=== PATIENT | male | born 1945 | race Caucasian/White ===

== ENCOUNTER 2017-08-06 09:00 | Inpatient (IN) | payer OTHER ==
[~2017-08-06] VITALS: Ht 165.1 cm; Wt 77.1 kg
[2017-08-06] MEDS ORDERED: COUMADIN5 MG PO (10:51)
[2017-08-06] MEDS ORDERED: CRESTOR20 MG PO (10:52)
[2017-08-06] MEDS ORDERED: OLMESARTAN PO (10:52)
== END 2017-08-14 16:20 | disposition home or self-care (01) | DRG 331 ==
LOC: SURG 08-11 05:40 → O/R 08-11 05:40 → SURH 08-11 09:00 → SURG 08-11 12:58 → SURH 08-11 20:15 → SURG 08-14 16:20
PROVIDERS: Colon & Rectal Surgery
PROC: 07TC4ZZ Resection of Pelvis Lymphatic, Percutaneous Endoscopic Approach (ICD-10-PCS; 2017-08-11)
PROC: 0DBU4ZZ Excision of Omentum, Percutaneous Endoscopic Approach (ICD-10-PCS; 2017-08-11)
PROC: 0WQF4ZZ Repair Abdominal Wall, Percutaneous Endoscopic Approach (ICD-10-PCS; 2017-08-11)
PROC: 0DTH4ZZ Resection of Cecum, Percutaneous Endoscopic Approach (ICD-10-PCS; principal; 2017-08-11 20:15)
DX: D12.0 Benign neoplasm of cecum (principal); K43.9 Ventral hernia without obstruction or gangrene; I11.9 Hypertensive heart disease without heart failure; E78.00 Pure hypercholesterolemia, unspecified; Z79.01 Long term (current) use of anticoagulants; Z95.2 Presence of prosthetic heart valve; D07.5 Carcinoma in situ of prostate

== ENCOUNTER 2017-08-21 12:27 | Inpatient (IN) | payer OTHER ==
[~2017-08-21] VITALS: Ht 167.6 cm; Wt 74.8 kg
[~2017-08-21 12:27] MED LIST: COUMADIN5 MG PO; CRESTOR20 MG PO; OLMESARTAN PO
[2017-08-24] MEDS ORDERED: OMEGA 3-6-9 CO400 MG PO (09:46)
[2017-08-24] MEDS ORDERED: VITAMIN D1000 UNIT PO (09:46)
== END 2017-08-29 15:08 | disposition home or self-care (01) | DRG 813 ==
LOC: ER 12:27 → MEDI 08-22 14:13 → MEDJ 08-25 17:58
PROC: 30233N1 Transfusion of Nonautologous Red Blood Cells into Peripheral Vein, Percutaneous Approach (ICD-10-PCS; principal; 2017-08-21)
DX: D68.32 Hemorrhagic disorder due to extrinsic circulating anticoagulants (principal); K92.2 Gastrointestinal hemorrhage, unspecified; D62 Acute posthemorrhagic anemia; T45.515A Adverse effect of anticoagulants, initial encounter; Y92.098 Other place in other non-institutional residence as the place of occurrence of the external cause; Z79.01 Long term (current) use of anticoagulants; Z95.2 Presence of prosthetic heart valve; I11.9 Hypertensive heart disease without heart failure; E78.00 Pure hypercholesterolemia, unspecified

== ENCOUNTER 2021-10-29 08:14 | Day surgery (SDC) | payer OTHER ==
[~2021-10-29 08:14] MED LIST changes: +AMLODIP PO; +ESCITA PO; +LORAZE PO; +MEMANTINE HCL10 MG PO; +OMEGA 3-6-9 CO400 MG PO; +ROSUVAST PO; +VITAMIN D1000 UNIT PO; +WARF PO; +[UNRECOGNIZED DRUG - CODE] PO
== END 2021-10-29 17:00 | disposition home or self-care (01) ==
LOC: CIR.AMB 08:14
PROVIDERS: ATTEND Colon & Rectal Surgery
DX: C21.8 Malignant neoplasm of overlapping sites of rectum, anus and anal canal (principal); E78.00 Pure hypercholesterolemia, unspecified; Z79.01 Long term (current) use of anticoagulants; I11.9 Hypertensive heart disease without heart failure; K64.1 Second degree hemorrhoids; I10 Essential (primary) hypertension; Z95.0 Presence of cardiac pacemaker; Z95.2 Presence of prosthetic heart valve; G30.9 Alzheimer's disease, unspecified

== ENCOUNTER 2021-11-02 15:12 | Inpatient (IN) | payer OTHER ==
[~2021-11-02] VITALS: Ht 167.6 cm; Wt 68.9 kg
[2021-11-02] MEDS ORDERED: WARFARIN SODIUM5 MG PO (15:44)
[2021-11-02] MEDS ORDERED: CRESTOR10 MG PO (15:44)
[2021-11-02] MEDS ORDERED: ATIVAN1 M1 PO (15:44)
[2021-11-02] MEDS ORDERED: RIVASTIGMINE3 MG PO (15:45)
[2021-11-02] MEDS ORDERED: ESCITALOPRA5 MG/5 ML PO (15:45)
[2021-11-02] MEDS ORDERED: AMLODIPINE-OLM1 EACH (15:46)
[2021-11-06] MEDS ORDERED: AMLODIPINE BESYL5 MG (08:18)
[2021-11-06] MEDS ORDERED: QUETIAPINE FUMA25 MG (08:18)
[2021-11-08] MEDS ORDERED: MEMANTINE HCL10 MG PO (14:05)
[2021-11-08] MEDS ORDERED: ATIVAN1 M1 PO (14:05)
[2021-11-08] MEDS ORDERED: WARFARIN SODIUM5 MG PO (14:05)
[2021-11-08] MEDS ORDERED: RESTORIL15 MG PO (14:05)
[2021-11-08] MEDS ORDERED: RIVASTIGMINE3 MG PO (14:05)
[2021-11-08] MEDS ORDERED: ABANEU-SL TABL1 EACH SL (14:05)
[2021-11-08] MEDS ORDERED: LOVENOX40 MG/0.4 SUBCUTANEO (14:05)
[2021-11-08] MEDS ORDERED: PROTEINEX-18 LI30 ML PO (14:05)
[2021-11-08] MEDS ORDERED: CRESTOR10 MG PO (14:05)
[2021-11-08] MEDS ORDERED: FUSION PLUS CA1 EACH PO (14:05)
[2021-11-08] MEDS ORDERED: ESCITALOPRA5 MG/5 ML PO (14:05)
== END 2021-11-08 14:16 | disposition home or self-care (01) | DRG 378 ==
LOC: ER 15:12 → SURG 11-03 15:12
PROVIDERS: ADMIT Internal Medicine Geriatric Medicine; ATTEND Internal Medicine Geriatric Medicine
PROC: 30233N1 Transfusion of Nonautologous Red Blood Cells into Peripheral Vein, Percutaneous Approach (ICD-10-PCS; principal; 2021-11-03)
DX: K62.5 Hemorrhage of anus and rectum (principal); F02.81 Dementia in other diseases classified elsewhere, unspecified severity, with behavioral disturbance; D64.9 Anemia, unspecified; D50.0 Iron deficiency anemia secondary to blood loss (chronic); G30.9 Alzheimer's disease, unspecified; I11.9 Hypertensive heart disease without heart failure; E78.5 Hyperlipidemia, unspecified; Z90.49 Acquired absence of other specified parts of digestive tract; Z79.01 Long term (current) use of anticoagulants; Z95.2 Presence of prosthetic heart valve; Z78.1 Physical restraint status